=== PATIENT | male | born 1960 ===

== ENCOUNTER 2017-12-15 10:29 | Outpatient (CLI) | payer OTHER | END 2017-12-15 11:00 | disposition home or self-care (01) | LOC: NUCLEAR 10:29 | DX: I87.2 Venous insufficiency (chronic) (peripheral) (principal); C61 Malignant neoplasm of prostate ==

== ENCOUNTER → 2018-01-08 | Outpatient (CLI) | payer OTHER ==
[~2018-01-08] MED LIST: GABAPENTIN400 MG PO; LIPITOR20 MG PO; PREVACID30 MG PO; TOPROL XL50 M1 PO; TYLENOL325 MG PO; ZANTAC300 MG PO
== END | disposition home or self-care (01) ==
LOC: RAD 12:51
DX: C61 Malignant neoplasm of prostate (principal)

== ENCOUNTER 2018-01-23 11:45 | Inpatient (IN) | payer OTHER ==
[~2018-01-23] VITALS: Ht 180.3 cm; Wt 123.4 kg
[2018-01-23] MEDS ORDERED: TOPROL XL50 M1 PO (14:12)
[2018-01-23] MEDS ORDERED: GABAPENTIN400 MG PO (14:13)
[2018-01-23] MEDS ORDERED: ZANTAC300 MG PO (14:13)
[2018-01-23] MEDS ORDERED: LIPITOR20 MG PO (14:14)
[2018-01-23] MEDS ORDERED: PREVACID30 MG PO (14:14)
[2018-01-23] MEDS ORDERED: TYLENOL325 MG PO (14:15)
== END 2018-01-30 12:30 | disposition home or self-care (01) | DRG 708 ==
LOC: O/R 01-28 05:43 → RECOVERY 01-28 08:15 → SURH 01-29 14:15
PROVIDERS: Urology
PROC: 07TC0ZZ Resection of Pelvis Lymphatic, Open Approach (ICD-10-PCS; 2018-01-28)
PROC: 0VT30ZZ Resection of Bilateral Seminal Vesicles, Open Approach (ICD-10-PCS; 2018-01-28)
PROC: 0VT00ZZ Resection of Prostate, Open Approach (ICD-10-PCS; principal; 2018-01-28 08:15)
DX: C61 Malignant neoplasm of prostate (principal)